=== PATIENT | female | born 1945 | race Caucasian/White ===

== ENCOUNTER 2018-01-10 15:27 | Outpatient (CLI) | payer MEDICARE | END 2018-01-10 15:28 | disposition home or self-care (01) | LOC: BICMAMMO 15:27 | PROVIDERS: ATTEND Family Medicine | DX: Z12.31 Encounter for screening mammogram for malignant neoplasm of breast (principal); Z80.3 Family history of malignant neoplasm of breast | CPT/HCPCS: 77063; 77067 ==

== ENCOUNTER 2018-11-03 13:12 | Emergency (ER) | payer MEDICARE ==
--- NOTE | 2018-11-03 13:37 | RAD ---
Exam: XR Wrist 3 Lt View STANDARD HISTORY: Injury to left wrist after a fall. COMPARISON: None FINDINGS: There is a fracture involving the distal left radial metaphysis with mild apex volar angulation of fr acture fragments. The distal fracture fragment is displaced dorsally by 5 mm. No additional fracture is seen. Degenerative changes are seen involving the first carpal metacarpal and greater mul tangular joint. Subcutaneous soft tissue swelling is seen about the wrist. There is a fracture involving the ulnar styloid process with the distal fracture fragment slightly migrated proximally. IMPRESSION: 1. Mildly angulated and impacted distal left radial metaphyseal fracture. 2. Ulnar styloid process fracture. 3. Subcutaneous soft tissue swelling
[2018-11-03] MEDS ORDERED: Lidocaine 1% (PF) 30 ML VIAL ONE (14:17)
[2018-11-03] MEDS ORDERED: Ondansetron ODT 4 MG TAB ONE (14:32)
[2018-11-03] MEDS ORDERED: Morphine 4 MG/ML VIAL ONE (14:32)
--- NOTE | 2018-11-03 15:43 | RAD ---
LEFT WRIST RADIOGRAPHS 3 VIEWS: DATE: 11/03/2018. PROVIDED CLINICAL HISTORY: I Post reduction. FINDINGS: Transversely oriented distal radial metaphyseal region fracture is noted with loss of radial length a nd inclination. There is dorsal displacement of the distal fracture fragment by 1 cortex width. Ali gnment appears improved with respect to the examination performed earlier same date. Nondisplaced ul renee styloid fracture may also be present. IMPRESSION: Distal radial fracture as above. POS: TPC
[2018-11-03] MEDS ORDERED: HYDROcodone/Acetaminophen 5/325 mg Tablet ONE (15:50)
[2018-11-03] MEDS ORDERED: Acetaminophen 325 MG TAB ONE (15:50)
== END 2018-11-03 15:57 | disposition home or self-care (01) ==
LOC: ERS 13:12
DX: S52.612A Displaced fracture of left ulna styloid process, initial encounter for closed fracture (principal); S59.292A Other physeal fracture of lower end of radius, left arm, initial encounter for closed fracture; I10 Essential (primary) hypertension; E03.9 Hypothyroidism, unspecified; W08.XXXA Fall from other furniture, initial encounter
CPT/HCPCS: 25605; 96372; J2001; J2270; Q0162

== ENCOUNTER 2018-11-11 07:14 | Day surgery (SDC) | payer MEDICARE ==
[2018-11-10 15:32] VITALS: BMI 24.6
[2018-11-11 09:03] LABS: #Basophils 0.1 thou/uL (0.0-0.2); #Eosinphils 0.1 thou/uL (0.0-0.7); #Lymphocytes 2.4 thou/uL (1.20-3.40); #Monocytes 0.8 thou/uL (0.11-0.59); #Neutrophils 3.6 thou/uL (1.40-6.50); %Basophils 0.9 % (0.0-1.0); %Eosinophils 1.3 % (0.0-10.0); %Lymphocytes 34.3 % (21.0-51.0); %Monocytes 11.6 % (0.0-10.0); %Neutrophils 51.9 % (42.0-75.0); Mean Corpuscular HGB CONC 33.8 g/dL (32.0-36.0); Mean Corpuscular Hemoglobin 30.2 pg (27.0-31.0); Mean Corpuscular Volume 89.3 fL (78.0-98.0); Mean Platelet Volume 6.7 fL (7.4-10.4); Platelet Count 293 thou/uL (130-400); RBC Distribution Width 11.2 % (11.5-14.5); Red Blood Cell (RBC) Count 4.63 mill/uL (4.20-5.40); White Blood Cell (WBC) Count 6.9 thou/uL (4.8-10.8)
[2018-11-11] MEDS ORDERED: Clindamycin/D5W 900 mg/50 ml Premix Bag ONE (09:17)
[2018-11-11] MEDS ORDERED: Midazolam HCl 2 mg/2 ml Vial ONE (09:24)
[2018-11-11] MEDS ORDERED: Fentanyl 100 MCG/2 ML VIAL ONE ×5 (09:25→14:10)
[2018-11-11 09:27] LABS: Anion Gap 15 mmol/L (10-20); BUN (Urea Nitrogen) 11 mg/dL (9.8-20.1); Calc. Creatinine Clearance 63 mL/min (70-130); Calcium 9.7 mg/dL (7.8-10.44); Carbon Dioxide 24 mmol/L (23-31); Chloride 99 mmol/L (98-107); Estimated GFR-MDRD 78; Glucose 93 mg/dL (83-110); Potassium 3.3 mmol/L (3.5-5.1); Sodium 135 mmol/L (136-145)
[2018-11-11] MEDS ORDERED: Promethazine HCl 25 MG/ML VIAL IM PRN (09:53)
[2018-11-11] MEDS ORDERED: Fentanyl 100 MCG/2 ML VIAL IV PRN (09:53)
[2018-11-11] MEDS ORDERED: traMADol HCl 50 MG TAB PO PRN ×2 (09:53)
[2018-11-11] MEDS ORDERED: Zolpidem Tartrate 5 MG TAB PO PRN (09:53)
[2018-11-11] MEDS ORDERED: Ropivacaine 0.2% 550 ML 550 ML NERVE BLCK SCH (09:53)
[2018-11-11] MEDS ORDERED: HYDROcodone/Acetaminophen 10/325 mg Tablet PO PRN ×2 (09:53)
[2018-11-11] MEDS ORDERED: Ketorolac Tromethamine 30 MG/ML VIAL IVP PRN (09:53)
[2018-11-11] MEDS ORDERED: Ondansetron PF 4 MG/2 ML Vial IVP PRN (09:53)
--- NOTE | 2018-11-11 13:00 | RAD ---
LEFT WRIST 2 VIEWS: HISTORY: Distal radial fracture of the left radius. FINDINGS/IMPRESSION: Two spot fluoroscopic intraoperative images of the left wrist demonstrate internal reduction and inte rnal fixation of the distal radial fracture noted on 11/03/2018. POS: OFF
[2018-11-11] MEDS ORDERED: Promethazine HCl 25 MG/ML VIAL ONE (13:15)
--- NOTE | 2018-11-11 14:01 | OP ---
DATE OF PROCEDURE: 11/11/2018 PREOPERATIVE DIAGNOSIS: Displaced intra-articular distal radius fracture, left. POSTOPERATIVE DIAGNOSIS: Displaced intra-articular distal radius fracture, left. PROCEDURE PERFORMED: open reduction and internal fixation of left distal radius. ASSISTANTS: Ewa. ESTIMATED BLOOD LOSS: Minimal. SPECIMENS: None. DRAINS: None. COMPLICATIONS: None. DESCRIPTION OF PROCEDURE: The patient was taken to the operating room, where general anesthesia was induced. Left arm was prepped and draped in sterile fashion. After exsanguination, tourniquet was inflated to 250 mmHg. I made an FCR approach to the distal radius. The fracture was markedly displaced. I distracted the fracture, irrigated, and removed the hematoma. Fracture was then reduced, wide aligned anatomically, checked this on fluoroscopy and still appeared that she has significant shortening of the radius compared to her ulna. This in spite of the fact that all bone fragments were lined up appropriately. I had to take this reduction since this was the appropriate reduction. I used a Synthes 3-hole plate, locking variable angle type. Screws were inserted in the usual technique and checked on biplanar fluoroscopy. I did replace a 14-mm screw in the shaft with a 12-mm screw, this was a little bit long, otherwise reduction went excellent. Irrigation was performed again. Tourniquet was released. Hemostasis was obtained. Subcutaneous tissue was closed with 3-0 Vicryl and the skin was closed with Prolene. A sterile dressing was applied. The patient was placed in a bulky hand splint. There were no complications. Job ID: [id number]
[2018-11-11] MEDS ORDERED: HYDROmorphone 2 MG/ML VIAL ONE (14:28)
[2018-11-11] MEDS ORDERED: Ropivacaine 0.2% HCl/PF (40 MG/20 ML VIAL) ONE (15:16)
[2018-11-11] MEDS ORDERED: Ropivacaine 0.5% HCl/PF (150 MG/30 ML VIAL) ONE (15:16)
[2018-11-11] MEDS ORDERED: Dexamethasone 20 MG/5 ML VIAL ONE (15:48)
[2018-11-11] MEDS ORDERED: Ondansetron PF 4 MG/2 ML Vial ONE (15:48)
[2018-11-11] MEDS ORDERED: Ketorolac Tromethamine 30 MG/ML VIAL ONE (15:48)
[2018-11-11] MEDS ORDERED: Lidocaine 1% PF 5 ML VIAL ONE (15:48)
[2018-11-11] MEDS ORDERED: PROPOFOL 200 MG/20 ML VIAL ONE (15:48)
--- NOTE | 2018-11-11 15:52 | OP ---
DATE OF PROCEDURE: 11/11/2018 PREOPERATIVE DIAGNOSIS: Left distal radius metaphyseal fracture. POSTOPERATIVE DIAGNOSIS: Left distal radius metaphyseal fracture. PROCEDURE PERFORMED: Open reduction and internal fixation, left distal radius metaphyseal fracture. SURGEON: Rickey Currie MD WHEEL PRESSER: Jarod Mcneil PA-C. ANESTHESIA: General via LMA augmented with indwelling interscalene block. COMPONENTS USED: Synthes 2 column, 3-hole volar locking plate. TOURNIQUET TIME: 24 minutes at 300 mmHg. FINDINGS: Transverse distal metaphyseal radius fracture with apex volar. ESTIMATED BLOOD LOSS: Less than 10 mL. DRAINS: None. SPECIMENS: None. COMPLICATIONS: None. COUNTS: Correct. INDICATION FOR SURGERY: Zenia is a 73-year-old white female, who fell on an outstretched left forearm resulting in a left distal radius metaphyseal fracture. She elected to proceed with open reduction and internal fixation for this problem. PROCEDURE IN DETAIL: After informed consent was obtained in the preoperative holding area, the patient was taken to the operative suite and positioned appropriately on the operating table. The affected limb was then placed on an armboard and a well-padded tourniquet was placed over the proximal brachium. General anesthesia was induced and, once adequate anesthesia was obtained, the affected extremity was then prepped and draped in the usual sterile fashion. Prior to exsanguination, a time-out was called and all members of the surgical team agreed upon all pertinent positives to include site, surgeon, and patient for this particular case. Once completed, an Esmarch was then used to exsanguinate the extremity. Tourniquet was raised, where it remained for the remainder of the case. Please see tourniquet time. After exsanguination, a linear incision was made extending from the first crease of the wrist radially and extended 1 fingerbreadth off the radial margin and down to approximately 3.5 cm proximal. The Bovie electrocautery was used to control local bleeding. Tenotomy scissors were then used to divide the superficial subcuticular and subcutaneous layer with careful dissection. We then came down directly on the flexor carpi radialis. This was retracted ulnarly and blunt finger dissection was then used to identify the flexor pollicis longus and the brachial radialis. This interval was then developed bluntly with finger dissection down to the pronator quadratus. We allowed ourselves plenty of room proximally and distally to allow for the appropriate plate. The pronator quadratus was then identified. Small Hohmanns were placed radially to retract soft tissues and a 15 blade was then used to sharply dissect the radial border of the pronator quadratus. A periosteal elevator was then used to elevate the periosteum. This was then reflected both proximally and distally and held back with an [facility] blunt retractor. The fracture site was then identified. This was opened up, copiously irrigated, cleaned out with a tiny curet. All fracture fragments were then placed in their appropriate position and inline longitudinal traction and reduction of deforming force was then applied and provisional reduction was performed. Fluoroscopy was then brought into the field and we sized for the appropriate plate, which was then placed along the radial margin and provisionally pinned in place and the center variable cortical screw was placed and tightened down to hold reduction. Once this was completed, distal K-wires were then used to hold distal fragment reduction and we used combination of fixed and variable angle locking screws in the distal aspect of the fracture to maintain near anatomic reduction. After this was completed, we then turned attention to the proximal aspect of the plate. The appropriate nonlocking cortical screws were then drilled, measured and placed to allow for subcortical fixation without being long. This was checked in both AP and lateral planes with fluoroscopy. Being happy with our near anatomic reduction and plate placement and all appropriate screw holes tightened and locked, we then copiously irrigated the wound with normal saline. Primary closure was accomplished with 0 Vicryl with the pronator quadratus, which was reflected prior and then placed back along the radial margin. A small subcuticular layer was then placed with 3-0 interrupted Vicryl for provisional closure and skin closure was accomplished with 3-0 interrupted horizontal mattress nylon. A sterile dressing was applied. A volar splint was then placed. The procedure was terminated without any complication. Tourniquet was dropped. Please see tourniquet time above and the patient had good return of capillary refill in all digits and the splint was allowed to harden prior to moving the patient. The patient was awakened in the operative suite and taken to recovery room in stable condition. Dictated by LETA Mcneil, for Rickey Currie MD. Job ID: [id number] [facility] HOSPITALNohemy
== END 2018-11-11 16:55 | disposition home or self-care (01) ==
LOC: SDC 07:14
PROVIDERS: ATTEND Orthopaedic Surgery
PROC: 0PSJ04Z Reposition Left Radius with Internal Fixation Device, Open Approach (ICD-10-PCS; principal; 2018-11-11)
DX: S52.532A Colles' fracture of left radius, initial encounter for closed fracture (principal); S59.202A Unspecified physeal fracture of lower end of radius, left arm, initial encounter for closed fracture; I10 Essential (primary) hypertension; E03.9 Hypothyroidism, unspecified; M19.90 Unspecified osteoarthritis, unspecified site; M81.0 Age-related osteoporosis without current pathological fracture; G25.81 Restless legs syndrome; Z79.899 Other long term (current) drug therapy; Z91.038 Other insect allergy status; W01.0XXA Fall on same level from slipping, tripping and stumbling without subsequent striking against object, initial encounter
CPT/HCPCS: 25608; 73110; 76000; 80048; 85025; A4306; C1713 ×2; 36415; J1100; J1170; J1885; J2001; J2250; J2405; J2550; J2704; J2795; J3010; J3490

== ENCOUNTER 2020-08-21 14:35 | Outpatient (CLI) | payer MEDICARE ==
--- NOTE | 2020-08-21 14:57 | MMO ---
Bilateral MAMMO Bilat Screen [facility]. CLINICAL HISTORY: Patient is 75 years old and is seen for screening. The patient has the following family history of breast cancer: grandmother. The patient has no personal history of cancer. VIEWS: The views performed were: bilateral craniocaudal with tomosynthesis and bilateral mediolateral oblique with tomosynthesis. FILMS COMPARED: The present examination has been compared to prior imaging studies performed at [facility] on 07/13/2007, 12/26/2008 and 01/10/2018, and at [facility] on 02/24/2006. This study has been interpreted with the assistance of computer-aided detection. MAMMOGRAM FINDINGS: The breasts are heterogeneously dense, which could obscure a lesion on mammography. There are no suspicious masses, suspicious calcifications, or new areas of architectural distortion. IMPRESSION: THERE IS NO MAMMOGRAPHIC EVIDENCE OF MALIGNANCY. A ROUTINE FOLLOW-UP MAMMOGRAM IN 1 YEAR IS RECOMMENDED. THE RESULTS OF THIS EXAM WERE SENT TO THE PATIENT. ACR BI-RADS Category 1 - Negative MAMMOGRAPHY NOTE: 1. A negative mammogram report should not delay a biopsy if a dominant of clinically suspicious mass is present. 2. Approximately 10% to 15% of breast cancers are not detected by mammography. 3. Adenosis and dense breasts may obscure an underlying neoplasm. Reported by: YU DELACRUZ MD Electonically Signed: [id number]
== END 2020-08-21 14:36 | disposition home or self-care (01) ==
LOC: BICMAMMO 14:35
PROVIDERS: ATTEND Family Medicine
DX: Z12.31 Encounter for screening mammogram for malignant neoplasm of breast (principal); Z80.3 Family history of malignant neoplasm of breast
CPT/HCPCS: 77063; 77067

== ENCOUNTER 2023-07-14 13:46 | Outpatient (CLI) | payer MEDICARE | END 2023-07-14 13:47 | disposition home or self-care (01) | LOC: BICMAMMO 13:46 | PROVIDERS: ATTEND Family Medicine | DX: Z12.31 Encounter for screening mammogram for malignant neoplasm of breast (principal); Z80.3 Family history of malignant neoplasm of breast | CPT/HCPCS: 77063; 77067 ==